=== PATIENT | female | born 1945 | race Caucasian/White ===

== ENCOUNTER 2016-12-16 16:27 | Emergency (ER) | payer MEDICARE ==
[~2016-12-16] VITALS: Ht 162.6 cm; Wt 81.0 kg
[~2016-12-16 16:27] MED LIST: ST JTAB PO
[2016-12-16 16:30] VITALS: BP 139/80; PULSE 76; RESP 16; TEMP 97.5; O2SAT 97
[2016-12-16] MEDS ORDERED: ASPI81TA11 PO (16:43)
--- NOTE | 2016-12-16 16:44 | PD ---
HPI Chief Complaint: Abdominal Pain Time Seen by Provider: 16:36 Travel History International Travel<30 days: No Contact w/Intl Traveler<30days: No Traveled to known affect area: No History of Present Illness HPI The patient was seen and examined in the presence of the nurse. She complains of left lower quadrant pain duration 2 days. Severity is moderate. No alleviating factors. She is able to eat without having the pain be affected. No nausea or vomiting or diarrhea or fever. No flank or back pain PFSH Past Medical History Arthritis: Yes (ARTHRITIS TO LEFT HAND) Cancer: No Cardiovascular Problems: No Diabetes: No Diminished Hearing: No Genitourinary: No Immune Disorder: No Musculoskeletal: Yes Neurologic: No Psychiatric: No Reproductive: No Respiratory: No Thyroid Disease: No Past Surgical History Gynecologic Surgery: Yes () Social History Alcohol Use: Yes Tobacco Use: No Substance Use: No Allergies-Medications (Allergen,Severity, Reaction): Coded Allergies: No Known Allergies (Unverified , 12/16/16) Reported Meds & Prescriptions Reported Meds & Active Scripts Active Reported Aspirin EC (Aspirin) 81 Mg Tabdr 81 Mg PO DAILY Review of Systems General / Constitutional: No: Fever Eyes: No: Visual changes HENT: No: Headaches Cardiovascular: No: Chest Pain or Discomfort Respiratory: No: Shortness of Breath Gastrointestinal: Positive: Abdominal Pain Genitourinary: No: Dysuria Musculoskeletal: No: Pain Skin: No Rash Neurologic: No: Weakness Psychiatric: No: Depression Endocrine: No: Polydipsia Hematologic/Lymphatic: No: Easy Bruising Physical Exam Narrative GENERAL: Well-nourished, well-developed patient with some left lower quadrant pain. SKIN: Warm and dry. HEAD: Atraumatic. Normocephalic. EYES: Pupils equal and round. No scleral icterus. No injection or drainage. ENT: No nasal bleeding or discharge. Mucous membranes pink and moist. NECK: Trachea midline. No JVD. CARDIOVASCULAR: Regular rate and rhythm. No murmur appreciated. RESPIRATORY: No accessory muscle use. Clear to auscultation. Breath sounds equal bilaterally. GASTROINTESTINAL: Abdomen soft, left lower quadrant is tender without rebound or guarding, nondistended. Hepatic and splenic margins not palpable. MUSCULOSKELETAL: No obvious deformities. No clubbing. No cyanosis. No edema. NEUROLOGICAL: Awake and alert. No obvious cranial nerve deficits. Motor grossly within normal limits. Normal speech. PSYCHIATRIC: Appropriate mood and affect; insight and judgment normal. Data Data Last Documented VS Vital Signs Date Time Temp Pulse Resp B/P Pulse Ox O2 Delivery O2 Flow Rate FiO2 12/16/16 16:30 97.5 76 16 139/80 97 Orders Urinalysis - C+S If Indicated (12/16/16 16:41) Ct Abd/Pel W/O Iv Contrast (12/16/16 ) Urine Culture (12/16/16 16:45) Labs Laboratory Tests Test 12/16/16 16:45 Urine Collection Type CLEAN CATCH Urine Color YELLOW Urine Turbidity CLEAR Urine pH 5.5 Urine Specific [place] 1.015 Urine Protein NEG mg/dL Urine Glucose (UA) NEG mg/dL Urine Ketones TRACE mg/dL Urine Occult Blood MOD Urine Nitrite NEG Urine Bilirubin NEG Urine Leukocyte Esterase TRACE Urine RBC 0-3 /hpf Urine WBC 9-14 /hpf Urine WBC Clumps MANY Urine Transitional Epithelial 0-5 /hpf Cells Microscopic Urinalysis Comment CULTURE INDICATED MDM Medical Decision Making Medical Screen Exam Complete: Yes Emergency Medical Condition: Yes Medical Record Reviewed: Yes Differential Diagnosis Diverticulitis, colon diverticulitis, kidney stone Narrative Course I have reviewed the patient's electronic medical record. Urinalysis shows some pyuria will be cultured but patient already receiving Cipro and Flagyl CT of abdomen and pelvis reveals diverticulitis without abscess or obstruction She reports having colonoscopy 2 months ago showing only a couple of polyps. Recommend follow-up primary care and GI Diagnosis Primary Impression: Diverticulitis large intestine w/o perforation or abscess w/o bleeding Additional Instructions: The patient was advised to follow up with their physician and return if they worsen. The patient was warned about potential sedation for the medications they will receive on prescription. Med/Other Pt SpecificInfo: Prescription(s) given Scripts Tramadol 50 Mg Tab50 Mg PO Q6H PRN (PAIN) #20 TAB Ref 0 Prov:Vijay Whitaker MD 12/16/16 Ondansetron (Zofran)4 Mg Tab4 Mg PO Q6HR PRN (NAUSEA OR VOMITING) #12 TAB Ref 0 Prov:Vijay Whitaker MD 12/16/16 Ciprofloxacin (Cipro)500 Mg [id number] Mg PO BID #14 TAB Ref 0 Prov:Vijay Whitkaer MD 12/16/16 Metronidazole (Flagyl)500 Mg [id number] Mg PO QID #28 TAB Ref 0 Prov:Vijay Whitaker MD 12/16/16 Disposition: 01 DISCHARGE HOME Condition: Stable Vijay Whitaker MD Dec 16, 2016 16:44
[2016-12-16 16:56] LABS: GLUCOSE,URINE NEG (NEG); KETONE, URINE TRACE mg/dL (NEG); NITRITE,URINE NEG (NEG); PH, URINE 5.5 (5.0-8.5)
[2016-12-16 16:57] LABS: BLOOD, URINE MOD (NEG)
[2016-12-16 16:58] LABS: METHOD OF COLLECTION CLEAN CATCH; URINE COLOR YELLOW (YELLW/STRAW)
[2016-12-16 17:04] LABS: COMMENT (UR) CULTURE INDICATED; CULTURE IF INDICATED CULTURE INDICATED; RBC, URINE 0-3 /hpf (0-3); TRANSITIONAL EPI CELLS, URINE 0-5 /hpf
--- NOTE | 2016-12-16 18:29 | RADHPO ---
EXAM DATE/TIME: 12/16/2016 17:47 [facility] COMPARISON: No previous studies available for comparison. INDICATIONS : Left lower abdomen pain for two days. ORAL CONTRAST: No oral contrast ingested. RADIATION DOSE: 19.67 CTDIvol (mGy) MEDICAL HISTORY : None SURGICAL HISTORY : section. ENCOUNTER: Initial ACUITY: 2 days PAIN SCALE: 6/10 LOCATION: Left lower quadrant TECHNIQUE: Volumetric scanning of the abdomen and pelvis was performed. Using automated exposure control and ad justment of the mA and/or kV according to patient size, radiation dose was kept as low as reasonably achievable to obtain optimal diagnostic quality images. FINDINGS: LOWER LUNGS: The visualized lower lungs are clear. LIVER: Homogeneous density without lesion. There is no dilation of the biliary tree. No calcified [place]ston es. SPLEEN: Normal size without lesion. PANCREAS: Within normal limits. KIDNEYS: Normal in size and shape. There is no mass, stone, or hydronephrosis. ADRENAL GLANDS: Within normal limits. VASCULAR: There is no aortic aneurysm. BOWEL/MESENTERY: There is no dilation of loops of small or large bowel. The appendix is identified in the right lower quadrant and is normal in appearance. There is focal induration of the fat surrounding the junction of the descending colon and sigmoid colon. There are scattered diverticula in the sigmoid and left colon. No focal fluid collection seen. No intraperitoneal gas. ABDOMINAL WALL: Within normal limits. RETROPERITONEUM: There is no lymphadenopathy. BLADDER: No wall thickening or mass. REPRODUCTIVE: Within normal limits. INGUINAL: There is no lymphadenopathy or hernia. MUSCULOSKELETAL: Moderate degenerative changes in the posterior elements of the lower lumbar spine. CONCLUSION: Findings are characteristic of diverticulitis at the junction of descending and sigmoid colon. No dr armenta fluid collections seen. Mickey Salazar MD on December 16, 2016 at 18:24 Board Certified Radiologist. This report was verified electronically.
[2016-12-16] MEDS ORDERED: CIPR-9 PO (18:34)
[2016-12-16] MEDS ORDERED: METR-1 PO (18:34)
[2016-12-16] MEDS ORDERED: ZOFR4TAB PO (18:34)
[2016-12-16] MEDS ORDERED: TRAM50TA PO (18:34)
[2016-12-16 18:49] VITALS: BP 129/87
== END 2016-12-16 18:50 | disposition home or self-care (01) ==
LOC: PHED 16:27
DX: K57.32 Diverticulitis of large intestine without perforation or abscess without bleeding (principal)
CPT/HCPCS: 74176; 81001; 87086